=== PATIENT | female | born 1985 | race Caucasian/White ===

== ENCOUNTER → 2016-05-24 | Outpatient (CLI) | payer OTHER ==
[~2016-05-24] MED LIST: PRENTAB26 PO
== END | disposition home or self-care (01) ==
LOC: C.LAB1850 14:22
PROVIDERS: ATTEND Obstetrics & Gynecology
DX: Z32.01 Encounter for pregnancy test, result positive (principal)

== ENCOUNTER → 2016-05-26 | Outpatient (CLI) | payer OTHER ==
[2016-05-26 11:53] LABS: URINE APPEARANCE CLEAR (CLEAR); URINE BILIRUBIN NEG (NEG); URINE COLOR YELLOW; URINE NITRITE NEG (NEG); URINE SPECIFIC GRAVITY 1.002 (1.000-1.030); UROBILINOGEN NEG (NEG)
[2016-05-26 12:00] LABS: MANUAL MICROSCOPIC REQUIRED? NO; REVIEW REQ? NO
== END | disposition home or self-care (01) ==
LOC: C.LABSPEC 11:15
PROVIDERS: ATTEND Obstetrics & Gynecology
DX: Z34.00 Encounter for supervision of normal first pregnancy, unspecified trimester (principal)

== ENCOUNTER → 2016-06-02 | Outpatient (CLI) | payer OTHER ==
[2016-06-06 03:15] LABS: CHLAMYDIA TRACH RNA*** NOT DETECTED (NOT DETECTED); GC (NEIS GONORRHOEAE)RNA** NOT DETECTED (NOT DETECTED)
== END | disposition home or self-care (01) ==
LOC: C.LABSPEC 17:34
PROVIDERS: ATTEND Obstetrics & Gynecology
DX: Z34.00 Encounter for supervision of normal first pregnancy, unspecified trimester (principal)

== ENCOUNTER → 2016-06-02 | Outpatient (CLI) | payer OTHER ==
[2016-06-02 17:29] LABS: BASO % 0.1 %; BASO ABS # 0.01 K/uL (0-0.2); COMPLETE YES; EOS % 0.7 %; HEMATOCRIT 37.3 % (37-47); IG% 0.4 %; LYMPH % 24.9 %; LYMPH ABS # 2.37 K/uL (1.2-3.4); MEAN CELL VOLUME 90.3 fL (80-100); MEAN CORPUSCULAR HEMOGLOBIN 32.2 pg (25-34); MEAN CORPUSCULAR HGB CONC 35.7 g/dl (32-36); MONO % 6.4 %; NEUT % 67.5 %; PLATELET COUNT 182 K/uL (130-400); RED BLOOD COUNT 4.13 M/uL (4.2-5.4); WHITE BLOOD COUNT 9.51 K/uL (4.8-10.8)
== END | disposition home or self-care (01) ==
LOC: C.LAB1850 16:24
PROVIDERS: ATTEND Obstetrics & Gynecology
DX: Z34.00 Encounter for supervision of normal first pregnancy, unspecified trimester (principal)

== ENCOUNTER → 2016-08-02 | Outpatient (CLI) | payer OTHER ==
[2016-08-02 17:35] LABS: GTGD 50 Grams
== END | disposition home or self-care (01) ==
LOC: C.LAB1850 16:06
PROVIDERS: ATTEND Obstetrics & Gynecology
DX: Z34.01 Encounter for supervision of normal first pregnancy, first trimester (principal)

== ENCOUNTER → 2016-08-17 | Outpatient (CLI) | payer OTHER ==
[2016-08-21 16:27] LABS: AFP CONCENTRATION 50.9 NG/ML; AFPTS GESTATIONAL AGE 18.6 WEEKS; AFPTS INSULIN DEP DIABETIC? NO; AFPTS MATERNAL WT 129 LBS; ALPHA-FETOPROTEIN RACE CAUCASIAN=W; EDD DETERMINED BY ULTRASOUND; HISTORY OF NTD NO; REPEAT SAMPLE? NO
== END | disposition home or self-care (01) ==
LOC: C.LAB1850 07:02
PROVIDERS: ATTEND Obstetrics & Gynecology
DX: Z34.01 Encounter for supervision of normal first pregnancy, first trimester (principal); O28.9 Unspecified abnormal findings on antenatal screening of mother

== ENCOUNTER → 2016-10-21 | Outpatient (CLI) | payer OTHER ==
[2016-10-21 09:00] LABS: HEMATOCRIT 34.1 % (37-47)
[2016-10-21 09:47] LABS: URINE APPEARANCE CLEAR (CLEAR); URINE BILIRUBIN NEG (NEG); URINE COLOR YELLOW; URINE NITRITE NEG (NEG); URINE PH 7.5 (4.5-7.5); URINE SPECIFIC GRAVITY 1.003 (1.000-1.030); UROBILINOGEN NEG (NEG)
[2016-10-21 09:50] LABS: MANUAL MICROSCOPIC REQUIRED? NO; REVIEW REQ? NO
== END | disposition home or self-care (01) ==
LOC: C.LAB 07:09
PROVIDERS: ATTEND Obstetrics & Gynecology
DX: Z34.02 Encounter for supervision of normal first pregnancy, second trimester (principal)

== ENCOUNTER → 2016-10-28 | Outpatient (CLI) | payer OTHER | END | disposition home or self-care (01) | LOC: C.LAB 07:13 | PROVIDERS: ATTEND Obstetrics & Gynecology | DX: O28.9 Unspecified abnormal findings on antenatal screening of mother (principal); Z3A.00 Weeks of gestation of pregnancy not specified ==

== ENCOUNTER 2016-11-09 08:42 | Emergency (ER) | payer OTHER ==
[~2016-11-09] VITALS: Ht 170.2 cm; Wt 59.6 kg
[2016-11-09 08:46] VITALS: TEMP 36.6; Ht 170.2 cm; Wt 59.6 kg
[2016-11-09] MEDS ORDERED: PRENTAB26 PO (08:57)
[2016-11-09] MEDS ORDERED: SODIUM CHLORIDE 0.9% 1000ML 1,000 ML IV STA ×2 (10:00→13:01)
[2016-11-09 10:19] LABS: BASO % 0.2 %; BASO ABS # 0.02 K/uL (0-0.2); COMPLETE YES; EOS % 0.1 %; HEMATOCRIT 34.4 % (37-47); IG% 2.2 %; LYMPH % 9.6 %; LYMPH ABS # 1.12 K/uL (1.2-3.4); MEAN CELL VOLUME 93.5 fL (80-100); MEAN CORPUSCULAR HEMOGLOBIN 32.9 pg (25-34); MEAN CORPUSCULAR HGB CONC 35.2 g/dl (32-36); MEAN PLATELET VOLUME 8.7 fL (7.4-10.4); MONO % 4.4 %; NEUT % 83.5 %; PLATELET COUNT 206 K/uL (130-400); RED BLOOD COUNT 3.68 M/uL (4.2-5.4); WHITE BLOOD COUNT 11.68 K/uL (4.8-10.8)
[2016-11-09 10:26] LABS: POINT OF CARE TROPONIN I < 0.030 ng/ml (0-0.045)
[2016-11-09 10:46] LABS: ALT/SGPT 28 U/L (12-78); BLOOD UREA NITROGEN 10 mg/dl (7-18); BUN/CREATININE RATIO 16.2 (10-20); CALCIUM 9.1 mg/dl (8.5-10.1); CARBON DIOXIDE 24 mmol/L (21-32); CHLORIDE 105 mmol/L (98-107); CREATININE 0.61 mg/dl (0.60-1.20); GLUCOSE 77 mg/dl (70-99); POTASSIUM 3.4 mmol/L (3.5-5.1); SODIUM 138 mmol/L (136-145)
[2016-11-09 10:49] LABS: ALKALINE PHOSPHATASE 113 U/L (45-117); AST/SGOT 34 U/L (15-37)
--- NOTE | 2016-11-09 10:59 | DIAGNOSTIC IMAGING REPORT ---
BILATERAL LOWER EXTREMITY VENOUS DOPPLER CLINICAL HISTORY: Chest pain. Evaluate for deep venous thrombus. COMPARISON STUDY: No previous studies for comparison. TECHNIQUE: Sonography of the deep venous system of the bilateral lower extremities was performed. Compression and augmentation were evaluated. FINDINGS: The bilateral common femoral, superficial femoral and popliteal veins were compressible. Augmentation was normal. Flow was shown within the deep calf vessels. IMPRESSION: No evidence of deep venous thrombus within the bilateral lower extremities. Electronically signed by: Ahmet Kirkpatrick M.D. 11/09/2016 10:58 AM Dictated Date/Time: 11/09/2016 10:57 AM
--- NOTE | 2016-11-09 11:55 | DIAGNOSTIC IMAGING REPORT ---
CHEST ONE VIEW PORTABLE CLINICAL HISTORY: Chest pain. COMPARISON STUDY: No previous studies for comparison. FINDINGS: Lung volumes are normal. There are suspected bilateral breast implants. No consolidation is identified and there is no evidence of pulmonary edema. No pneumothorax or pleural effusion is identified. Cardiomediastinal silhouette is normal. IMPRESSION: No acute cardiopulmonary findings. Electronically signed by: Ahmet Kirkpatrick M.D. 11/09/2016 11:54 AM Dictated Date/Time: 11/09/2016 11:53 AM
[2016-11-09] MEDS ORDERED: OPTIRAY 320 IV PRN (13:15)
--- NOTE | 2016-11-09 13:46 | DIAGNOSTIC IMAGING REPORT ---
CT ANGIOGRAM OF THE CHEST CLINICAL HISTORY: Atypical chest pain, shortness of breath, tachycardia, elevated d-dimer. COMPARISON STUDY: Chest x-ray dated 11/09/2016 TECHNIQUE: Following the IV administration of 83 mL of Optiray-320, CT angiogram of the thorax was performed from the thoracic inlet to the lung bases utilizing the pulmonary embolus protocol. Images are reviewed in the axial, sagittal, and coronal planes. IV contrast was administered without complication. MIP imaging was performed. A dose lowering technique was utilized adhering to the principles of ALARA. CT DOSE: 168.44 mGy.cm FINDINGS: No pathologically enlarged axillary mediastinal or hilar lymph nodes were visualized. There was no evidence of thoracic aortic dilatation. There were no pulmonary artery filling defects to indicate acute pulmonary embolism. No pleural effusions are visualized. There was no evidence of focal pulmonary consolidation. There are bilateral breast prostheses. IMPRESSION: 1. No evidence of acute pulmonary embolism 2. No evidence of focal pulmonary consolidation Electronically signed by: Parveen Epstein M.D. 11/09/2016 1:45 PM Dictated Date/Time: 11/09/2016 1:42 PM
[2016-11-09 15:15] VITALS: BP 121/78; PULSE 78; O2SAT 100
--- NOTE | 2016-11-10 06:37 | EMERGENCY ROOM VISIT NOTE ---
ED Visit Note First contact with patient: 09:14 Chief Complaint: My chest feels heavy. History of Present Illness: is a 31-year-old white female who ambulates into the ED complaining of chest discomfort, shortness of breath and tachycardia. 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 She reports this is been minimally evaluated no cause has been identified. Additionally she currently reports that she is with her first child at 30 weeks gestation. Patient reports her symptoms started 30 days ago. She reports after coming to work she started having sensations of chest heaviness, shortness of breath and when she checked her heart rate it was in the 130s. This waxed and waned and she was sent home from work. On Sunday when she woke up from sleep she was having the same symptoms and stayed home from work. She returned to work yesterday and minimally had her symptoms but they were not as severe. Today at work her pain became more severe and has been constant and not relieved with rest. Currently she is complaining of a chest heaviness sensation throughout the entire chest with slight prominence just left lateral to the sternal border. Currently she rates her discomfort 3/10 but does report it was higher earlier today. Her pain is nonradiating. She has not identified any aggravating factors related to the pain. She has not taken any medications for pain prior to arrival at the hospital. Associated with her pain she reports she feels short of breath and this morning she checked her heart rate and it was 130. Additionally she does report she had cramping in her left calf muscle couple nights ago and felt like it was severe. Patient denies fevers, chills, sweats, skin eruptions, skin color changes, upper respiratory tract symptoms, wheezing, cough, orthopnea, dependent edema, previous clots, claudication, recent surgery/inactivity/extended travel, abdominal pain, nausea, vomiting, diarrhea, constipation, rectal bleeding, black /tarry stools, urinary symptoms, back/flank pain. Review of Systems: As noted above in history of present illness. All body systems were reviewed and found to be negative as noted above. Past Medical History: As previously noted, gestational diabetes, status post rest augmentation, tonsillectomy, adenoidectomy. Current Medications: Medications Dose Route/Sig Max Daily Dose Days Date Category Vitamin (Prenat Multivit/Centre/Iron/Folic Ac) Tab 1 Tab PO DAILY 11/09/16 Reported Allergies to Medications: Minocycline. Social History: Patient is currently employed; she feels safe in her home environment; she denies tobacco and alcohol use. Physical Examination: Vital Signs: Date Time Temp Pulse Resp B/P (MAP) Pulse Ox O2 Delivery O2 Flow Rate FiO2 11/09/16 15:15 78 18 121/78 100 11/09/16 13:46 94 16 118/72 11/09/16 13:17 77 11/09/16 12:28 84 16 114/69 100 11/09/16 10:16 83 16 113/71 11/09/16 09:05 76 11/09/16 08:46 36.6 104 18 124/87 100 Room Air GENERAL: 31-year-old female in mild distress due to symptoms, nontoxic-appearing , afebrile and hemodynamically stable. She is slightly anxious. NEUROLOGICAL: Awake, alert and oriented to person, place and time. Answering questions appropriately and following commands. Normal gait. Good hand eye coordination. SKIN: Warm, dry and pink. No soft tissue eruptions or trauma noted. HEENT: Atraumatic and normocephalic. PERRLA. Sclera white and conjunctiva pink. Airway patent. Pharynx is nonerythematous or edematous. Speech normal. No lymphadenopathy. Trachea midline. No jugular venous distention. No carotid bruits. BACK: No tenderness over the bony spine. No CVA tenderness. THORAX: Lungs sounds are clear to auscultation and equal bilaterally with symmetrical chest wall. No wheezing, rales or rhonchi. Mild tenderness in the left side of the chest just lateral to the spine. No bony crepitus, subcutaneous air or deformities noted. HEART: Regular rate and rhythm. No gallops, rubs or murmurs are appreciated. No lifts, heaves or thrills. PMI is not displaced. ABDOMEN: and firm and nontender. Positive bowel sounds in all quadrants. No guarding, rigidity or organomegaly. EXTREMITIES: Moves all extremities well on command and with purpose. All distal neurovascular statuses are intact and equal bilaterally. Mild bilateral dependent edema. No calf tenderness or cords. ED Course: Patient is assessed as noted above. Patient's medication list was reviewed. Laboratory Testing: Test 11/09/16 10:00 11/09/16 10:07 Range/Units White Blood Count 11.68 4.8-10.8 K/uL Red Blood Count 3.68 4.2-5.4 M/uL Hemoglobin 12.1 12.0-16.0 g/dL Hematocrit 34.4 37-47 % Mean Corpuscular Volume 93.5 80-100 fL Mean Corpuscular Hemoglobin 32.9 25-34 pg Mean Corpuscular Hemoglobin Concent 35.2 32-36 g/dl Platelet Count 206 130-400 K/uL Mean Platelet Volume 8.7 7.4-10.4 fL Neutrophils (%) (Auto) 83.5 % Lymphocytes (%) (Auto) 9.6 % Monocytes (%) (Auto) 4.4 % Eosinophils (%) (Auto) 0.1 % Basophils (%) (Auto) 0.2 % Neutrophils # (Auto) 9.76 1.4-6.5 K/uL Lymphocytes # (Auto) 1.12 1.2-3.4 K/uL Monocytes # (Auto) 0.51 0.11-0.59 K/uL Eosinophils # (Auto) 0.01 0-0.5 K/uL Basophils # (Auto) 0.02 0-0.2 K/uL RDW Standard Deviation 43.6 36.4-46.3 fL RDW Coefficient of Variation 12.9 11.5-14.5 % Immature Granulocyte % (Auto) 2.2 % Immature Granulocyte # (Auto) 0.26 0.00-0.02 K/uL Sodium Level 138 136-145 mmol/L Potassium Level 3.4 3.5-5.1 mmol/L Chloride Level 105 98-107 mmol/L Carbon Dioxide Level 24 21-32 mmol/L Anion Gap 9.0 3-11 mmol/L Blood Urea Nitrogen 10 7-18 mg/dl Creatinine 0.61 0.60-1.20 mg/dl Est Creatinine Clear Calc Drug Dose 124.6 ml/min Estimated GFR () 139.0 Estimated GFR (Non- 120.0 BUN/Creatinine Ratio 16.2 10-20 Random Glucose 77 70-99 mg/dl Calcium Level 9.1 8.5-10.1 mg/dl Total Bilirubin 0.2 0.2-1 mg/dl Direct Bilirubin < 0.1 0-0.2 mg/dl Aspartate Amino Transf (AST/SGOT) 34 15-37 U/L Alanine Aminotransferase (ALT/SGPT) 28 12-78 U/L Alkaline Phosphatase 113 45-117 U/L Total Protein 6.8 6.4-8.2 gm/dl Albumin 2.9 3.4-5.0 gm/dl Lipase 145 73-393 U/L Bedside D-Dimer > 450 0-450 ng/mlFEU Bedside Troponin I < 0.030 0-0.045 ng/ml Chest X-Rays: Were read by myself and the radiologist showing no acute infiltrates, effusions or pneumothorax. Normal heart silhouette and bony anatomy. Bilateral Venous Doppler Ultrasounds: Were reviewed by myself and read by the radiologist showing no evidence of deep vein thrombus of the lower extremities. CTA Chest: Was reviewed by myself and read by the radiologist showing no evidence of acute pulmonary embolism or focal pulmonary consolidation. EKG: Was read by myself and reviewed with Dr. Roman; shows normal sinus rhythm with a ventricular rate of [address] changes but no signs of acute ischemia, injury or infarction. No arrhythmias. Normal-appearing complexes. No previous to compare. Patient was hydrated with normal saline DC: She was offered pain medication and refused. Patient was reassessed multiple times during her stay in the emergency department. Patient's case was reviewed with Dr. Roman; we agreed on diagnostic approach, treatment, disposition and plan. Patient's case was consulted with Dr. Garza, RECORDS SECTION SUPERVISOR; she agreed that a chest CTA was required to rule out pulmonary embolism. Patient was educated about today's findings and instructed on her treatment plan ; she verbalized understanding and agreement with this plan. Clinical Impression: Acute chest pain. Decision-Making: Initially my differential diagnosis I considered pulmonary embolism, acute coronary syndrome, thoracic aneurysm, pneumothorax, pneumonia, pericarditis and other causes. Disposition: Patient discharged home in stable condition accompanied by her ; prior to departure she was reassessed and subjectively reported she was pain and symptom-free. Plan: Patient was encouraged to continue her current medication. Patient was encouraged to consider using 650 mg of acetaminophen every 6 hours as needed for pain. Patient was encouraged to avoid stimulants use and stay well hydrated. Patient was encouraged to rest when she has any symptoms. Patient is encouraged to follow-up with her family physician or will be practitioner for rechecks. Patient is encouraged return ED for worsening symptoms, coughing up blood, syncope or any new/concerning symptoms.
== END 2016-11-09 15:16 | disposition home or self-care (01) ==
LOC: C.EDB 08:44 → C.EDA 15:16
DX: R07.9 Chest pain, unspecified (principal); Z98.890 Other specified postprocedural states; Z88.8 Allergy status to other drugs, medicaments and biological substances

== ENCOUNTER → 2016-11-10 | Outpatient (CLI) | payer OTHER ==
[2016-11-10 18:02] LABS: INFLUENZA A PCR Neg for Influ A (NEG); INFLUENZA B PCR Neg for Influ B (NEG)
== END | disposition home or self-care (01) ==
LOC: C.LAB 15:59
PROVIDERS: ATTEND Physician Assistant Medical
DX: Z00.00 Encounter for general adult medical examination without abnormal findings (principal)

== ENCOUNTER → 2016-11-11 | Outpatient (CLI) | payer OTHER ==
[2016-11-11 13:40] LABS: URINE APPEARANCE CLEAR (CLEAR); URINE BILIRUBIN NEG (NEG); URINE COLOR YELLOW; URINE NITRITE NEG (NEG); URINE PH 6.5 (4.5-7.5); URINE SPECIFIC GRAVITY 1.004 (1.000-1.030); UROBILINOGEN NEG (NEG)
[2016-11-11 13:42] LABS: MANUAL MICROSCOPIC REQUIRED? NO; REVIEW REQ? NO
== END | disposition home or self-care (01) ==
LOC: C.LAB 12:39
PROVIDERS: ATTEND Internal Medicine
DX: R50.9 Fever, unspecified (principal)

== ENCOUNTER → 2016-12-19 | Outpatient (CLI) | payer OTHER | END | disposition home or self-care (01) | LOC: C.LABSPEC 17:52 | PROVIDERS: ATTEND Obstetrics & Gynecology | DX: Z34.03 Encounter for supervision of normal first pregnancy, third trimester (principal) ==

== ENCOUNTER 2017-01-08 23:42 | Inpatient (IN) | payer OTHER ==
[~2017-01-08] VITALS: Ht 170.2 cm; Wt 59.5 kg
[2017-01-09 00:29] VITALS: Ht 170.2 cm; Wt 59.5 kg
[2017-01-09] MEDS ORDERED: LACTATED RINGER'S 1000ML 1,000 ML IV PRN (00:57)
[2017-01-09] MEDS ORDERED: LACTATED RINGER'S 1000ML 1,000 ML IV SCH (00:57)
[2017-01-09] MEDS ORDERED: FENTANYL 2MCG/ML ROPIV 1.25MG/ML 100ML BAG EPI ONE (00:57)
[2017-01-09] MEDS ORDERED: EpHEDrine SULFATE INJ 50 MG/ML AMP ONE (00:57)
[2017-01-09] MEDS ORDERED: BUPIVACAINE 0.25% 30 ML VIAL ONE (00:57)
[2017-01-09] MEDS ORDERED: FENTANYL CITRATE INJ 50 MCG/1 ML 2 ML VIAL ONE (00:57)
[2017-01-09 01:20] LABS: HEMATOCRIT 39.7 % (37-47); MEAN CELL VOLUME 94.7 fL (80-100); MEAN CORPUSCULAR HEMOGLOBIN 33.4 pg (25-34); MEAN CORPUSCULAR HGB CONC 35.3 g/dl (32-36); MEAN PLATELET VOLUME 9.8 fL (7.4-10.4); PLATELET COUNT 236 K/uL (130-400); RED BLOOD COUNT 4.19 M/uL (4.2-5.4); WHITE BLOOD COUNT 18.56 K/uL (4.8-10.8)
[2017-01-09] MEDS ORDERED: NALOXONE HCL INJ 1 MG in SODIUM CHLORIDE 0.9% 1000ML 1,000 ML IV PRN (02:17)
[2017-01-09] MEDS ORDERED: LACTATED RINGER'S 1000ML 500 ML IV PRN (02:17)
[2017-01-09] MEDS ORDERED: NALOXONE HCL INJ 0.4 MG/1 ML VIAL/CARP IV PRN (02:30)
[2017-01-09] MEDS ORDERED: NALBUPHINE HCL INJ 10 MG/ML AMP IV PRN (02:30)
[2017-01-09] MEDS ORDERED: ONDANSETRON INJ 2 MG/ML 2 ML VIAL IV PRN (02:30)
[2017-01-09] MEDS ORDERED: FENTANYL 2MCG/ML ROPIV 1.25MG/ML 100ML BAG EPI PRN (02:30)
[2017-01-09] MEDS ORDERED: EpHEDrine SULFATE INJ 50 MG/ML AMP IV PRN (02:30)
[2017-01-09] MEDS ORDERED: DiphenhydrAMINE HCL 50 MG/ML VIAL IV PRN (02:30)
[2017-01-09] MEDS ORDERED: OXYTOCIN 30 UNITS/500ML NSS IV ONE (05:39)
[2017-01-09] MEDS ORDERED: OXYTOCIN INJ 20 UNITS in LACTATED RINGER'S 1000ML 1,000 ML IV SCH (06:24)
--- NOTE | 2017-01-09 06:28 | Vaginal Delivery Summary ---
Vaginal Delivery Summary The patient dilated to complete and pushed to deliver a viable female infant Apgars 9 and 9, via over second-degree perineal laceration. Mouth and nose bulb suctioned at the perineum. Shoulders and body delivered with ease. Infant vigorous and crying at . Cord clamped at 30 seconds of life. to maternal abdomen and cord doubly clamped and cut. Placenta delivered spontaneously and intact 3 vessel cord. Hemostasis achieved with dilute Pitocin and uterine massage. Bladder drained under sterile conditions for 200 cc's. Cervix and sulci intact. Bilateral labial laceration as well as second-degree perineal laceration repaired in usual fashion using 3-0 Vicryl. EBL 300 cc's. Mother and baby stable in recovery.
[2017-01-09] MEDS ORDERED: DIPHTHERIA/TETANUS/PERTUSSIS 0.5 ML SYR/VIAL IM. ONE (06:30)
[2017-01-09] MEDS ORDERED: ACETAMINOPHEN/CODEINE 300/30MG TAB PO PRN ×2 (06:30)
[2017-01-09] MEDS ORDERED: SUPERCREAM 0.870 % 15GM JAR EXT PRN (06:30)
[2017-01-09] MEDS ORDERED: BENZOCAINE 20% AER SPR 82.5 GM CAN EXT PRN (06:30)
[2017-01-09] MEDS ORDERED: OXYTOCIN 30 UNITS/500ML NSS IV PRN (06:30)
[2017-01-09] MEDS ORDERED: LANOLIN OINT EXT PRN ×2 (06:30)
[2017-01-09] MEDS ORDERED: ACETAMINOPHEN 325 MG TAB PO PRN (06:30)
[2017-01-09] MEDS ORDERED: HYDROCORTISONE ACETATE 25 MG SUPP PR PRN (06:30)
--- NOTE | 2017-01-09 08:29 | Anesthesia Procedure Note ---
Anesthesia Epidural Removal Nt Date & Time Jan 09, 2017 at 08:28 Vital Signs Pain Intensity: 0.0 Notes Mental Status: alert / awake / arousable, participated in evaluation Nausea / Vomiting: adequately controlled Pain: adequately controlled Airway Patency, RR, SpO2: stable & adequate BP & HR: stable & adequate Hydration State: stable & adequate Neuraxial Anesthesia: was administered Anesthetic Complications: no major complications apparent, pt satisfied with anesthetic care Epidural: removed without complications, with tip intact
[2017-01-09] MEDS: IBUPROFEN 600 MG TAB PO PRN ×4 (10:09→22:06)
[2017-01-09] MEDS: DOCUSATE SODIUM 100 MG CAP PO SCH ×2 (11:18→20:15)
[2017-01-09 12:30] VITALS: BP 132/82; PULSE 61; TEMP 36.9; O2SAT 100
[2017-01-09 13:02] VITALS: O2SAT 100
[2017-01-09 16:00] VITALS: BP 125/79; PULSE 58; TEMP 36.9; O2SAT 98
[2017-01-09 20:20] VITALS: BP 131/80; PULSE 55; TEMP 36.7; O2SAT 100
[2017-01-09 23:50] VITALS: BP 129/83; PULSE 55; TEMP 36.6; O2SAT 99
[2017-01-10 04:40] VITALS: BP 121/79; PULSE 62; TEMP 36.6; O2SAT 100
[2017-01-10] MEDS: IBUPROFEN 600 MG TAB PO PRN ×2 (06:22→10:57)
--- NOTE | 2017-01-10 07:42 | Progress Note ---
Subjective Jan 10, 2017. Subjective conversation w/ patient, physical exam, chart review Ambulation: ambulating normally Voiding: no voiding problems Diet Tolerance: Regular Diet Lochia: Small Feeding Type: Breast Feeding Objective Vital Signs Date Time Temp Pulse Resp B/P (MAP) Pulse Ox O2 Delivery O2 Flow Rate FiO2 01/10/17 04:40 36.6 62 16 121/79 (93) 100 Room Air 01/09/17 23:50 Room Air 01/09/17 23:50 36.6 55 16 129/83 (98) 99 Room Air 01/09/17 20:20 36.7 55 16 131/80 (97) 100 Room Air 01/09/17 20:20 Room Air 01/09/17 16:00 36.9 58 16 125/79 (94) 98 Room Air 01/09/17 16:00 98 Room Air 01/09/17 13:02 100 Room Air 01/09/17 12:30 36.9 61 18 132/82 (99) 100 Room Air Physical Exam General Appearance: WELL-APPEARING Abdomen: non tender Extremities: no calf tenderness Assessment and Plan Problem List Medical Problems: (1) Chest pain Status: Acute Post- Day#: 2 Continue Routine Care: home
--- NOTE | 2017-01-10 07:43 | Discharge Instructions ---
Discharge Instructions Date of Service Jan 10, 2017. Admission Reason for Admission: Check Labor Discharge Discharge Diagnosis / Problem: Discharge Goals Goal(s): Routine recovery after delivery Activity Recommendations Activity Limitations: per Instructions/Follow-up section . Instructions / Follow-Up Instructions / Follow-Up ACTIVITY RECOMMENDATIONS: * Gradual return to full activity over the next 2-3 weeks. * No lifting - nothing heavier than baby over the next 2-3 weeks. * Do not engage in vigorous exercise, sexual activity or sports until cleared by your physician. * Do not drive or operate any motorized equipment until cleared by your physician. * You may shower/bathe daily. MEDICATIONS: For discomfort or pain, you may use Acetaminophen (Tylenol), Ibuprofen (Advil), or Naproxen (Aleve) following the package directions. For constipation you may use Colace following the package directions. BREAST CARE: If you are not breast feeding: * Wear a supportive bra 24 hours a day for one to two weeks. * Avoid stimulating your breasts and nipples as much as possible during the first few weeks after delivery. * When taking a shower, have the warm water hit your back, not breasts. * When your breasts feel full, apply ice packs. Usually three to four times a day helps ease the discomfort. * Take a mild pain medication (Tylenol / Motrin) when you are uncomfortable. If breast feeding: * Use breast milk to lubricate nipples. Lansinoh cream may be used for sore nipples. You do not need to remove cream prior to breast feeding. If using a different brand of cream, check the label for directions regarding removal of cream prior to nursing. * Wear a supportive bra. * If having problems with breasts or breast feeding, call a jewelry consultant or your health care provider. EPISIOTOMY CARE: After delivery, if you have an episiotomy (stitches), the following steps will ease discomfort and aid healing. * For the first 24 hours after delivery, place ice packs next to your episiotomy to help reduce swelling. * After the first 24 hour-period, sitz baths, either portable or in the tub, are suggested. A shower with a shower arm sprayed over the episiotomy may be comforting. * Marisa care should be done after each voiding and bowel movement. Squirt warm water from a plastic bottle over the perineum (region of the body between the anus and urinary opening) and pat dry. * Use Dermoplast to ease discomfort. Shake container. [place]met[place] directly over the episiotomy. Place a Tucks on a clean sanitary pad next to your episiotomy. SPECIAL CARE INSTRUCTIONS: When you are discharged from the hospital, it is important for you to follow the instructions listed below: * During the first week at home, you should be able to care for yourself and your baby. In addition, the usual light household activities are encouraged. * Limit your activities to the way you feel. Do not try to clean the house or move furniture. Be sensible. * If you actively engage in sports and have done so up until the time of your delivery, you may resume these activities as soon as you feel able. This may take up to one month or even longer. Use good judgment. * Continue to take your vitamins for at least six weeks after the of your baby. * Your diet need not be limited unless you were on a special diet before your delivery. Breast-feeding mothers need around 2500 calories per day and at least 64-80 ounces of fluid per day (8 to 10 glasses). * You should eat foods from the four major food groups. Crash diets or fad diets are to be avoided. Eating lean meats, fresh fruits and vegetables, low-fat dairy products, high fiber foods and a regular exercise program, will help you get back to your pre- weight without putting your health at risk. * Constipation is sometimes a problem after delivery. Take a mild laxative as needed. If breast feeding, Milk of Magnesia is acceptable to use. You may use a suppository or Fleets enema if no episiotomy. * A daily shower or tub bath is suggested. Be sure to thoroughly and gently dry the perineum. * A bloody vaginal discharge will usually continue until around four weeks post . A small amount of bleeding may continue for as long as six weeks. Vaginal discharge changes from the bright red bleeding after delivery to pink then brownish and finally yellowish-pink before becoming white and disappearing. * Bleeding may increase with activity. Your first period may come in 4-8 weeks. If you are breast feeding, your period may be delayed even longer. * [place] (sex) can begin whenever both you and your partner feel comfortable and do not have any form of genital infection. It is recommended that you wait at least six weeks for internal and external healing to occur. If you have questions, please talk to your health care practitioner. A condom should be used to prevent infection and . * Foreplay, gentle intercourse and lubrication is very important the first several times to prevent pain. A water-based lubricant such as K-Y jelly or Astroglide may be used. * If you have RH negative blood and your baby is RH positive, you will receive RHOGAM by injection prior to discharge. The nurse will give you a card to keep with you that has the date and place that you received RHOGAM after delivery. * During your care, you had a Rubella screen done to check for the presence of rubella antibodies in your blood. If your test was negative, you will receive a Rubella vaccine prior to discharge. This vaccine may cause a fever, soreness at the injection site and flu-like symptoms. If these symptoms persist, notify your health care practitioner. is not advised for one month after a Rubella vaccine. * Verbalizes understanding of car seat law as reviewed with patient nursing. * Car Seat hand-out given and reviewed with patient by nursing. * Shaken baby information reviewed with patient by nursing. Call you doctor if: * Heavy bleeding (saturating several pads an hour) or passing clots the size of your fist. * A fever >101 degrees F (38.3 degrees C) on two occasions four hours apart and /or chills. * Unusual pain in the pelvic or vaginal areas. * "Baby Blues" lasting longer than two weeks. If you have any questions or concerns, call your health care practitioner at . FOLLOW UP VISIT: * Please call the office at to schedule a 6 week examination. It is important you keep this appointment. It is important for you to make arrangements for either yearly or twice yearly check-ups thereafter. Current Hospital Diet Patient's current hospital diet: Regular OB Diet Discharge Diet Recommended Diet: Regular OB Diet Pending Studies Studies pending at discharge: no Medical Emergencies . Who to Call and When: Medical Emergencies: If at any time you feel your situation is an emergency, please call 911 immediately. . Non-Emergent Contact Non-Emergency issues call your: Volunteer Recruitment Coordinator . . "Provider Documentation" section prepared by Alex Masters. . VTE Core Measure Inpt VTE Proph given/why not?: Treatment not indicated
[2017-01-10] MEDS: DOCUSATE SODIUM 100 MG CAP PO SCH (08:00)
== END 2017-01-10 14:14 | disposition home or self-care (01) | DRG 775 ==
LOC: C.OPB 23:42 → C.LD 23:42 → C.OPB 01-09 00:58 → C.LD 01-09 00:58 → C.OBG 01-09 12:10
PROVIDERS: ADMIT Obstetrics & Gynecology; ATTEND Obstetrics & Gynecology
PROC: 0KQM0ZZ Repair Perineum Muscle, Open Approach (ICD-10-PCS; principal; 2017-01-09)
PROC: 10E0XZZ Delivery of Products of Conception, External Approach (ICD-10-PCS; principal; 2017-01-09)
DX: O70.1 Second degree perineal laceration during delivery (principal); Z37.0 Single live birth; Z3A.39 39 weeks gestation of pregnancy

== ENCOUNTER → 2017-02-16 | Outpatient (CLI) | payer OTHER | END | disposition home or self-care (01) | LOC: C.PAPS 17:41 | PROVIDERS: ATTEND Obstetrics & Gynecology | DX: Z12.4 Encounter for screening for malignant neoplasm of cervix (principal) ==

== ENCOUNTER → 2017-04-17 | Outpatient (CLI) | payer OTHER | END | disposition home or self-care (01) | LOC: C.PATHSPEC 13:49 | PROVIDERS: ATTEND Obstetrics & Gynecology | DX: N87.0 Mild cervical dysplasia (principal); B97.7 Papillomavirus as the cause of diseases classified elsewhere ==

== ENCOUNTER 2017-06-26 16:18 | Emergency (ER) | payer OTHER ==
[~2017-06-26] VITALS: Ht 170.2 cm; Wt 53.4 kg
[2017-06-26 16:21] VITALS: TEMP 36.8; Ht 170.2 cm; Wt 53.4 kg
[2017-06-26] MEDS ORDERED: MULT-240 PO (16:57)
[2017-06-26] MEDS ORDERED: RABIES VACCINE (IMOVAX) HUMAN DIPL CELL 2.5 INTER.UNIT/ML SYR IM. ONE (17:00)
[2017-06-26] MEDS ORDERED: RABIES IMMUNE GLOBULIN (HUMAN) 150 INTER.UNIT/ML 2 ML VIAL IM. ONE (17:00)
[2017-06-26 18:40] VITALS: BP 122/85; PULSE 76; O2SAT 100
--- NOTE | 2017-06-27 00:14 | EMERGENCY ROOM VISIT NOTE ---
ED Visit Note First contact with patient: 16:22 Chief Complaint: Rabies prophylaxis. History of Present Illness: Ms. Varner is a 32-year-old white female who ambulates into the ED accompanied by her and daughter reporting that when she awoke this morning he noted a bat flying around his house. She reports she contacted the family physician who recommended that the patient come to the emergency department for rabies prophylaxis. Patient reports that she checked over her body and was not able to identify any bites from the back. She reports he is feeling well and is asymptomatic at this time. Review of Systems: As noted above in history of present illness. Past Medical History: Gestational diabetes, status post breast augmentation and tonsillectomy and adenoidectomy. Current Medications: Multivitamins. Allergies to Medications: Patient denies. Social History: Patient is currently employed; he feels safe in her home environment; she denies tobacco use. Tetanus Immunization Status: Patient reports up-to-date. Physical Examination: Vital Signs: Date Time Temp Pulse Resp B/P (MAP) Pulse Ox O2 Delivery O2 Flow Rate FiO2 06/26/17 18:40 76 18 122/85 100 06/26/17 16:21 36.8 84 16 126/76 99 Room Air GENERAL: 32-year-old male in no acute distress, nontoxic-appearing, afebrile and hemodynamically stable. NEUROLOGICAL: Awake, alert and oriented to person, place and time. Answering questions appropriately and following commands. Normal gait. ED Course: Patient is assessed as noted above. Patient's medication list were reviewed. Patient received a total of 1068 units of rabies immunoglobulin IM and 2.5 units of rabies vaccination IM. Patient was observed and had no reactions to her medications. Patient was educated about today's findings and instructed on her treatment plan ; she verbalized understanding and agreement with this plan. Clinical Impression: In need of rabies prophylaxis. Disposition: Patient discharged home in stable condition accompanied by her and daughter; prior to departure he was reassessed and was asymptomatic. Plan: Patient was encouraged return to the ED on June 29, July 08 and July 10 for additional rabies vaccinations. Patient was educated on common side effects of rabies vaccination and treatment. Patient was encouraged to follow-up with family doctor as needed for mild reactions from his injections. Patient was encouraged return to the ED for any signs of allergic reactions, fevers, uncontrolled pain or any new/concerning symptoms.
== END 2017-06-26 18:20 | disposition home or self-care (01) ==
LOC: C.EDB 16:20 → C.EDD 18:20
DX: Z20.3 Contact with and (suspected) exposure to rabies (principal); Z23 Encounter for immunization

== ENCOUNTER 2017-07-03 15:46 | Emergency (ER) | payer OTHER ==
[~2017-07-03] VITALS: Ht 170.2 cm; Wt 54.2 kg
[~2017-07-03 15:46] MED LIST changes: +MULT-240 PO; -PRENTAB26 PO
[2017-07-03 15:59] VITALS: BP 111/78; TEMP 36.6; Ht 170.2 cm; Wt 54.2 kg
[2017-07-03] MEDS ORDERED: RABIES VACCINE (IMOVAX) HUMAN DIPL CELL 2.5 INTER.UNIT/ML SYR IM. ONE (16:15)
--- NOTE | 2017-07-03 16:18 | EMERGENCY ROOM VISIT NOTE ---
ED Visit Note First contact with patient: 16:02 CHIEF COMPLAINT: Rabies prophylaxis HISTORY OF PRESENT ILLNESS: This 32-year-old female patient presents to the emergency department, ambulatory, for their third rabies shot. The patient has not had any complications from the previous injections. They deny any other complaints. REVIEW OF SYSTEMS: A 6 system review of systems was completed with positives and pertinent negatives listed in the HPI. ALLERGIES: Gluten MEDICATIONS: Multivitamin PMH: None PHYSICAL EXAM: Vital Signs: Reviewed Nurse's notes, vital signs stable. GENERAL : This is a 32-year-old female, in no acute distress, well-developed, well- nourished. HEAD: Atraumatic, without temporal or scalp tenderness. EYES: PERRLA, EOMI, no discharge or injection. SKIN: Normal. NEUROLOGICAL: Alert and cooperative. Sensory and motor functions grossly intact. EMERGENCY DEPARTMENT COURSE: I examined the patient. The patient was given Imovax 1ml IM. The patient was observed for 20 minutes with no reaction. The patient was discharged home in stable condition. I attest that I have personally reviewed the patient's current medication list. Patient was found to have normal blood pressure on screening and does not require follow-up. Differential diagnosis includes rabies, rabies prophylaxis, infection, adverse reaction, and others DIAGNOSIS: Rabies prophylaxis The chart was completed utilizing [employer] Speech voice recognition software. Grammatical errors, random word insertions, pronoun errors, and incomplete sentences are an occasional consequence of this system due to software limitations, ambient noise, and hardware issues. Any formal questions or concerns about the content, text, or information contained within the body of this dictation should be directly addressed to the provider for clarification. Problem List Medical Problems: (1) Chest pain Status: Resolved Current/Historical Medications Scheduled Multiple Vitamins W/ Minerals (Womens One Daily), 1 TAB PO DAILY Allergies Coded Allergies: Minocycline (Verified Allergy, Severe, ANAPHYLAXIS, 01/09/17) swelling Vital Signs Date Time Temp Pulse Resp B/P (MAP) Pulse Ox O2 Delivery O2 Flow Rate FiO2 07/03/17 16:51 65 100 07/03/17 15:59 36.6 61 18 111/78 100 Room Air Medications Administered Medications (Trade) Dose Ordered Sig/Danni Route Start Time Stop Time Status Last Admin Dose Admin Rabies Vaccine Human Diploid Cell (Imovax Rabies) 2.5 interunit ONCE ONCE IM. 07/03/17 16:15 4/24/18 16:16 DC 07/03/17 16:25 2.5 INTERUNIT Departure Information Impression Primary Impression: Need for prophylactic vaccination against rabies Dispostion Home / Self-Care Condition GOOD Referrals No Doctor, Assigned (PCP) Patient Instructions My [facility] Additional Instructions You were seen in the ED today for your 3rd rabies vaccination. Please return on day 14 for your final vaccine. Return sooner for any concerning symptoms or adverse reactions.
[2017-07-03 16:51] VITALS: PULSE 65; O2SAT 100
== END 2017-07-03 16:52 | disposition home or self-care (01) ==
LOC: C.EDB 15:47 → C.EDD 16:52
DX: Z20.3 Contact with and (suspected) exposure to rabies (principal); Z23 Encounter for immunization

== ENCOUNTER 2017-07-10 09:34 | Emergency (ER) | payer OTHER ==
[~2017-07-10] VITALS: Ht 170.2 cm; Wt 53.4 kg
[2017-07-10 09:39] VITALS: TEMP 36.7; Ht 170.2 cm; Wt 53.4 kg
--- NOTE | 2017-07-10 09:54 | EMERGENCY ROOM VISIT NOTE ---
ED Visit Note First contact with patient: 09:43 CHIEF COMPLAINT: "rabies vaccine repeat visit". HISTORY OF PRESENT ILLNESS: This 32-year-old female patient presents to the emergency department via private for their fourth and final rabies shot. The patient has not had any complications from the previous injections. They deny any other complaints. REVIEW OF SYSTEMS: A 6 system review of systems was completed with positives and pertinent negatives listed in the HPI. ALLERGIES: Minocycline MEDICATIONS: As noted below PMH: Unchanged from previous visit. PHYSICAL EXAM: Vital Signs: Reviewed Nurse's notes, vital signs stable. GENERAL : 32-year-old female, in no acute distress, well-developed, well-nourished. HEAD: Atraumatic. EYES: PERRLA, EOMI, no discharge or injection. SKIN: Normal. NEUROLOGICAL: Alert and cooperative. Sensory and motor functions grossly intact. EMERGENCY DEPARTMENT COURSE: I examined the patient. The patient was given 2.5 interunit, 1ml IM of Imovax. The patient was observed for 20 minutes with no reaction. The patient was discharged home in stable condition. Problem List Medical Problems: (1) Chest pain Status: Resolved Current/Historical Medications Scheduled Multiple Vitamins W/ Minerals (Womens One Daily), 1 TAB PO DAILY Allergies Coded Allergies: Minocycline (Verified Allergy, Severe, ANAPHYLAXIS, 07/10/17) swelling Vital Signs Date Time Temp Pulse Resp B/P (MAP) Pulse Ox O2 Delivery O2 Flow Rate FiO2 07/10/17 10:21 79 18 101/54 98 07/10/17 09:39 36.7 82 18 111/72 100 Room Air Medications Administered Medications (Trade) Dose Ordered Sig/Danni Route Start Time Stop Time Status Last Admin Dose Admin Rabies Vaccine Human Diploid Cell (Imovax Rabies) 2.5 interunit ONCE ONCE IM. 07/10/17 10:00 07/10/17 10:01 DC 07/10/17 10:00 2.5 INTERUNIT Departure Information Impression Primary Impression: Rabies, need for prophylactic vaccination against Dispostion Home / Self-Care Condition GOOD Referrals No Doctor, Assigned (PCP) Patient Instructions My [facility] Additional Instructions You were seen in the emergency department for the last rabies vaccination injection today. Please return with any new/concerning symptoms.
[2017-07-10] MEDS ORDERED: RABIES VACCINE (IMOVAX) HUMAN DIPL CELL 2.5 INTER.UNIT/ML SYR IM. ONE (10:00)
[2017-07-10 10:21] VITALS: BP 101/54; PULSE 79; O2SAT 98
== END 2017-07-10 10:22 | disposition home or self-care (01) ==
LOC: C.EDB 09:35
DX: Z20.3 Contact with and (suspected) exposure to rabies (principal); Z23 Encounter for immunization

== ENCOUNTER 2018-06-28 16:19 | Inpatient (IN) ==
[2018-06-28] MEDS ORDERED: ePHEDrine sulfate 50 MG/ML AMP ONE ×2 (16:23→16:26)
[2018-06-28] MEDS ORDERED: BUPIVACAINE 0.25% 30 ML VIAL ONE ×2 (16:23→16:26)
[2018-06-28] MEDS ORDERED: fentaNYL citrate 100 MCG/2 ML VIAL ONE ×2 (16:23→16:27)
[2018-06-28] MEDS ORDERED: fentaNYL 2MCG/ML ROPIV 1.25MG/ML 100 ML BAG EPI ONE ×2 (16:24→16:27)
[2018-06-28] MEDS ORDERED: LACTATED RINGER'S 1,000 ML IV PRN ×2 (16:27→17:06)
[2018-06-28] MEDS ORDERED: OXYTOCIN 30 UNITS/500 ML BAG IV PRN (16:27)
[2018-06-28] MEDS ORDERED: LACTATED RINGER'S 1,000 ML IV SCH (16:30)
--- NOTE | 2018-06-28 16:38 | Anesthesiology Consultation ---
Date of Service June 28, 2018 Assessment & Plan Chart Review Chart Review: Patient NOT seen in Pre Admission Testing and Acceptable Risk for Labor Epidural Consults Requested none ASA ASA2 Proposed Anesthesia Anesthesia Type: Labor Epidural and CSE Risk / Benefits Reviewed With: PT / POA / Parent / Guardian, Accepts Plan and Informed Consent Obtained NPO Date Last Intake of Fluids: 06/28/18 Time Last Intake of Fluids: 16:00 Date Last Intake of Solids: 06/28/18 Time Last Intake of Solids: 13:30 History Allergies Allergy/AdvReac Type Severity Reaction Status Date / Time minocycline Allergy Severe ANAPHYLAXIS Verified 07/10/17 09:54 Medications Home Medications Medication Instructions Recorded Confirmed Last Taken MULTIPLE VITAMINS W/ MINERALS 1 tab PO DAILY #0 06/26/17 06/28/18 Unknown (WOMENS ONE DAILY) [id number] acid 1 tab PO DAILY 06/28/18 06/28/18 06/28/18 07:00 Past Anesthesia History No Hx of Anesthesia Complications and No Family Hx of Anesthesia Complications History of PONV No Motion Sickness Screening History of Motion Sickness: No Exercise / Class Metabolic Activity II 4-5 Yardwork/Stairs/Walk up hill Review of Systems no chest pain or sob Physical Exam Vital Signs Last Vital Signs Pulse 82 06/28/18 16:35 BP 132/78 06/28/18 16:35 Pulse Ox 100 06/28/18 16:34 ENMT Mouth: no TMJ abnormality Thyromental Distance: > or= 3.5 Finger Breadths Mallampati Class: II Neck normal visual inspection Respiratory normal respiratory effort Auscultation: lungs clear to auscultation bilaterally Cardiovascular Rate/Rhythm: regular rate and regular rhythm Musculoskeletal Spine: normal cervical ROM Neurologic moves all extremities Psychiatric Orientation: alert and oriented x 3
[2018-06-28 17:05] LABS: Hematocrit (blood only) 37.4 % (37-47); Hemoglobin 13.2 g/dL (12.0-16.0); Mean Corpuscular Volume 93.3 fL (80-100); Mean Platelet Volume 9.6 fL (7.4-10.4); Platelet Count 181 K/uL (130-400); RDW Coefficient of Variation 12.5 % (11.5-14.5); Red Blood Count 4.01 M/uL (4.2-5.4); White Blood Count 11.56 K/uL (4.8-10.8)
[2018-06-28] MEDS ORDERED: ONDANSETRON INJ 2 MG/ML 2 ML VIAL IV PRN (17:06)
[2018-06-28] MEDS ORDERED: NALOXONE HCL 1 MG in SODIUM CHLORIDE 0.9% 1000ML 1,000 ML IV PRN (17:06)
[2018-06-28] MEDS ORDERED: NALBUPHINE HCL INJ 10 MG/ML AMP IV PRN (17:06)
[2018-06-28] MEDS ORDERED: fentaNYL 2MCG/ML ROPIV 1.25MG/ML 100 ML BAG EPI PRN (17:06)
[2018-06-28] MEDS ORDERED: DiphenhydrAMINE HCL 50 MG/ML VIAL IV PRN (17:06)
[2018-06-28] MEDS ORDERED: ePHEDrine sulfate 50 MG/ML AMP IV PRN (17:06)
[2018-06-28] MEDS ORDERED: NALOXONE HCL 0.4 MG/1 ML VIAL/CARP IV PRN (17:06)
[2018-06-28 17:27] LABS: Mean Corpuscular Hgb Conc 35.3 g/dL (32-36)
--- NOTE | 2018-06-28 18:14 | Procedure Note ---
Vaginal Delivery Summary Date of Service June 28, 2018 Manuela pushed to deliver a viable in OA position. The shoulders delivered without difficulty, followed by the remainder of the . It was placed on maternal abdomen, where cord was doubly clamped, then cut by FOB. Placenta S/I/3VC and sent for exam due to circumvallate appearance. Second degree perineal laceration repaired with vicryl in usual manner. Fundus firm and lochia minimal at completion of delivery.
[2018-06-28] MEDS ORDERED: ACETAMINOPHEN 325 MG TAB PO PRN (18:29)
[2018-06-28] MEDS ORDERED: BENZOCAINE 20% AER SPR 82.5 GM CAN EXT PRN (18:29)
[2018-06-28] MEDS ORDERED: OXYCODONE/ACETAMINOPHEN 5mg/325mg TAB PO PRN (18:29)
[2018-06-28] MEDS ORDERED: SUPERCREAM 0.870% 15 GM JAR EXT PRN (18:29)
[2018-06-28] MEDS ORDERED: HYDROCORTISONE ACETATE 25 MG SUPP PR PRN (18:29)
[2018-06-28] MEDS ORDERED: DIPHTHERIA/TETANUS/PERTUSSIS 0.5 ML SYR/VIAL IM ONE (18:29)
[2018-06-28] MEDS ORDERED: IBUPROFEN 600 MG TAB PO ONE (19:22)
[2018-06-29] MEDS: IBUPROFEN 600 MG TAB PO PRN ×5 (03:24→22:11)
--- NOTE | 2018-06-29 04:14 | Anesthesia Procedure Note ---
Date of Service June 29, 2018 Anesthesia Post Epidural Note Vital Signs Vital Signs: Temp Pulse Resp BP Pulse Ox 36.8 C 63 18 104/62 97 06/28/18 23:30 06/28/18 23:30 06/28/18 23:30 06/28/18 23:30 06/28/18 23:30 Pain Intensity Bilateral Abdomen: Pain Intensity: 2 Notes Mental Status: alert / awake / arousable and participated in evaluation Nausea / Vomiting: adequately controlled Pain: adequately controlled Airway Patency, RR, SpO2: stable & adequate BP & HR: stable & adequate Hydration State: stable & adequate Neuraxial Anesthesia: was administered and sensory block is resolving Anesthetic Complications: no major complications apparent and Pt Satisfied with anesthetic care Epidural: Removed without complications and With tip intact
[2018-06-29 07:07] LABS: Hematocrit (blood only) 36.3 % (37-47); Hemoglobin 12.7 g/dL (12.0-16.0)
--- NOTE | 2018-06-29 07:37 | Obstetrical Progress Note ---
Date of Service June 29, 2018 Assessment & Plan (1) state: Recovering normally. May be interested in discharge. Present on Admission?: No Subjective Ambulation: ambulating normally Voiding: no voiding problems Passing Gas:: Yes Diet Tolerance:: regular diet Lochia:: Small Feeding Type:: breast feeding Physical Exam Vital Signs (Past 24 Hours) Last Vital Signs Temp 36.5 C 06/29/18 03:34 Pulse 56 L 06/29/18 03:34 Resp 18 06/29/18 03:34 BP 119/83 06/29/18 03:34 Pulse Ox 99 06/29/18 03:34 Constitutional WD/WN, vitals as above Respiratory normal respiratory effort, lungs clear to auscultation Cardiovascular RRR, no murmur, no edema Gastrointestinal (Abdomen) soft, postgravid Psychiatric A+Ox3, euthymic affect Genitourinary OB Exam Abdomen: + fundal height Fundus: + firm and + relation to umbilicus (- 1); not tender Results & Data Laboratory Results Laboratory Results - last 24 hr 06/28/18 06/29/18 16:38 06:34 WBC 11.56 H RBC 4.01 L Hgb 13.2 12.7 Hct 37.4 36.3 L MCV 93.3 MCH 32.9 MCHC 35.3 RDW Std Deviation 42.0 RDW Coeff of Suki 12.5 Plt Count 181 MPV 9.6
[2018-06-29] MEDS: PRENATAL VITAMIN 1 TAB PO SCH (08:04)
[2018-06-29] MEDS: DOCUSATE SODIUM 100 MG CAP PO SCH ×2 (10:45→20:40)
[2018-06-30] MEDS: IBUPROFEN 600 MG TAB PO PRN (07:54)
[2018-06-30] MEDS: DOCUSATE SODIUM 100 MG CAP PO SCH (07:54)
[2018-06-30] MEDS: PRENATAL VITAMIN 1 TAB PO SCH (07:54)
--- NOTE | 2018-06-30 09:32 | Obstetrical Progress Note ---
Date of Service June 30, 2018 Assessment & Plan (1) state: Doing well. Plan d/c. Instructions given. Day #:: 2 Subjective Ambulation: ambulating normally Voiding: no voiding problems Passing Gas:: Yes Diet Tolerance:: regular diet Lochia:: Small Feeding Type:: breast feeding Patient doing well. No concerns. Physical Exam Vital Signs (Past 24 Hours) Last Vital Signs Temp 97.9 F 06/29/18 23:55 Pulse 56 L 06/29/18 23:55 Resp 18 06/29/18 23:55 BP 111/72 06/29/18 23:55 Pulse Ox 96 06/29/18 15:15 Constitutional WD/WN, vitals as above Cardiovascular Extremities: no calf tenderness, no pedal edema and no edema Gastrointestinal (Abdomen) soft, nd, nd Fundus firm at u
== END 2018-06-30 12:22 | disposition home or self-care (01) | DRG 807 ==
LOC: OPB 16:19 → 4S1 16:20 → 4S2 20:10

== ENCOUNTER 2022-05-18 23:05 | Inpatient (IN) ==
--- NOTE | 2022-05-19 00:50 | History & Physical Report ---
Date of Service May 19, 2022 Assessment & Plan (1) contractions: (2) Type 1 diabetes mellitus during : Plan No active labor but ctx regular and recommend continued evaluation in L&D. FHTs categ 1. Will need to recheck cx in about 2hr from previous at least to start or sooner if her status or status change. History of Present Illness Chief Complaint: contractions Primary Care Provider: Garry Huggins 37yo at 36+wks ega presents to L&D after calling noting ctx q5-7min. Patient was seen in office yesterday and was examined with cx 2-3cm/80% and baby low. She began with ctx this evening and called me with above concerned about labor. Was not breathing with ctx on phone. Membranes not ruptured but says they never have spont. Prior term births x 2 but with 2nd was rapid. Offered eval in L&D and accepted. Nurse exam on arrival 3-4cm/80/-2. Ctx regular but per nurse pt not visibly painful. PNC c/b 1. Type 1DM 2. GBS unknown, specimen pending PNL rh pos, ri, gbs pending Allergies Allergy/AdvReac Type Severity Reaction Status Date / Time minocycline Allergy Severe Joint Pain Verified 05/18/22 23:30 Home Medications Medication Instructions Recorded Confirmed Type cholecalciferol (vitamin D3) 50 50 mcg PO DAILY 03/08/20 05/18/22 History mcg (2,000 unit) capsule lancets 30 gauge (OneTouch Delica #400 ea 03/25/20 05/18/22 Rx Lancets) BD Ultra-Fine Chanel Pen Needle 32 #600 ea 04/26/20 05/18/22 Rx gauge x 5/32" (pen needle, diabetic) Dexcom G6 Scrap Yard Worker (blood-glucose #1 ea 04/26/20 05/18/22 Rx meter,continuous) Dexcom G6 Sensor (blood-glucose #9 ea 04/26/20 05/18/22 Rx sensor) Dexcom G6 Transmitter #1 ea 04/26/20 05/18/22 Rx (blood-glucose transmitter) glucagon 1 mg solution for 1 mg subcut Q20M PRN hypoglycemia 10/26/20 05/18/22 Rx injection (Glucagon Emergency Kit) #1 ea insulin pump cartridge,automated #1 ea 09/23/21 05/18/22 Rx dose,BT with controller subcutaneous (Omnipod 5 G6 Intro Kit (Gen 5) subcutaneous cartridge with controller) Saccharomyces boulardii [Daily PO 11/03/21 05/18/22 History Probiotic (S. boulardii)] calcium carbonate 600 mg calcium 600 mg PO DAILY 11/03/21 05/18/22 History (1,500 mg) tablet (Calcium) magnesium oxide 400 mg PO DAILY 11/03/21 05/18/22 History prenat.vits,ricki,prx-yhbs-udifs 1 tab PO DAILY 11/03/21 05/18/22 History insulin aspart U-100 100 unit/mL See Rx Instructions .Route .COMPLEX 11/07/21 05/18/22 History subcutaneous cartridge (Novolog PenFill U-100 Insulin aspart) OneTouch Verio test strips (blood #100 ea 12/26/21 05/18/22 Rx sugar diagnostic) acetone (urine) test (Ketostix #50 ea 12/26/21 05/18/22 Rx strips) insulin pump cart,automated,BT #30 ea 01/12/22 05/18/22 Rx (Omnipod 5 G6 Pods (Gen 5) subcutaneous cartridge) insulin aspart U-100 100 unit/mL 30 unit (0.3 mL) subcut DAILY #10 03/17/22 05/18/22 Rx subcutaneous solution (Novolog mL U-100 Insulin aspart) aspirin 81 mg tablet,delayed 81 mg PO DAILY 04/03/22 05/18/22 History release (Adult Low Dose Aspirin) Patient History Medical History (Updated 05/19/22 @ 00:49 by Chiquita Mosquera MD, FACOG) Diabetes type 1, controlled H/O varicella state Surgical History H/O breast augmentation H/O colposcopy with cervical biopsy 10/20/19 CIN1 04/17/[address] Mosquera LEATHA 2015 Dr. Kana ZHANG 1 History of tonsillectomy and adenoidectomy Hx of LASIK 07/2014 S/P tooth extraction 1997 Family History Mother Dyslipidemia Adenocarcinoma of appendix Hypertension Grandfather (Maternal) Colorectal cancer Denies family history of Ovarian cancer Prostate cancer Myocardial infarction Breast cancer Uterine cancer Social History Smoking Status: Never smoker Second Hand Exposure: No; Hx Alcohol Use: No Hx Substance Use: No Preferred Language: German Communication Ability: Effective Pattern Finisher Required: No Beliefs That Will Affect Care: None marital status: marital status details: Inocente [phone] Current Living Situation: Spouse and Family Current Living Situation Comment: lives with spouse, 2 children, 1 dog. 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 @ [employer] Other Information That Helps Us Care for You: No Feels Safe at Home: Yes Dental Care, Regularly: Yes Assistive Devices: None Review of Systems as per Subjective / HPI Physical Exam Constitutional: WD/WN, vitals as above Genitourinary: OB Exam Monitor Tracing: + external FHT monitor used, + external uterine monitor used (q2-6), + category I and + normal FHT variability strip review only Results & Data ([facility]) Vital Signs (Past 12 Hours) Vital Signs Temp Pulse Resp BP 05/18/22 23:33 98.4 F 18 05/18/22 23:25 71 119/72 Coding Level of Care Code None Diagnoses contractions O47.00 Type 1 diabetes mellitus during O24.019
[2022-05-19] MEDS ORDERED: LACTATED RINGER'S 1,000 ML IV SCH (02:30)
[2022-05-19] MEDS ORDERED: BETAMETH SOD PHOS/ACETATE IA 6 MG/ML IM STA (03:21)
[2022-05-19] MEDS ORDERED: LACTATED RINGER'S 1,000 ML IV PRN (03:21)
[2022-05-19] MEDS ORDERED: PENICILLIN G POTASSIUM 6 MU in DEXTROSE 5% 250 ML IV STA (03:21)
[2022-05-19] MEDS ORDERED: LIDOCAINE 1% LOCAL 20 ML VIAL INFIL PRN (03:21)
[2022-05-19] MEDS ORDERED: OXYTOCIN 30 UNITS/500 ML BAG IV PRN ×2 (03:21→06:11)
[2022-05-19] MEDS ORDERED: ePHEDrine sulfate 50 MG/ML AMP ONE (03:23)
[2022-05-19] MEDS ORDERED: fentaNYL 2MCG/ML ROPIVACAINE 1.25MG/ML 100 ML BAG EPI ONE (03:24)
[2022-05-19] MEDS ORDERED: SODIUM CHLORIDE 0.9% INJ 10 ML VIAL ONE (03:24)
[2022-05-19] MEDS ORDERED: fentaNYL citrate 100 MCG/2 ML VIAL ONE (03:24)
[2022-05-19] MEDS ORDERED: LIDOCAINE 2%/EPINEPHRINE 1:200,000 20 ML SDV ONE (03:24)
[2022-05-19] MEDS ORDERED: BUPIVACAINE 0.25% 30 ML VIAL ONE (03:24)
--- NOTE | 2022-05-19 03:29 | Labor Progress Brief Note ---
Date of Service May 19, 2022 Subjective pt with continued painful ctx. was rechecked and was 4cm and now 5-6cm with regular painful ctx. Assessment & Plan (1) labor in third trimester: Plan Admit, iv had been placed. start pcn for unknown gbs status. rec betamethasone. labs ordered. she may have epidural if desires. check bsg and pt then may use her own insulin pump and glucose monitor to keep bsg 80-120. fhts categ 1. Physical Exam Constitutional: WD/WN, vitals as above Genitourinary: sve as above Results & Data ([facility]) Vital Signs (Past 12 Hours) Vital Signs Temp Pulse Resp BP 05/18/22 23:33 98.4 F 18 05/18/22 23:25 71 119/72 Coding Level of Care Code None Diagnoses labor in third trimester O60.03
[2022-05-19] MEDS ORDERED: CARBOHYDRATES FOR HYPOGLYCEMIA PO PRN ×2 (03:45→06:15)
[2022-05-19] MEDS ORDERED: GLUCOSE 10 TAB/TUBE PO PRN ×2 (03:45→06:15)
[2022-05-19] MEDS ORDERED: GLUCOSE 40% GEL 15 GM TUBE PO PRN ×2 (03:45→06:15)
[2022-05-19] MEDS ORDERED: INSULIN ASPART 100 UNITS/ML VIAL SC PRN (03:45)
[2022-05-19] MEDS ORDERED: GLUCAGON FOR INJ 1 MG VIAL IM PRN ×2 (03:45→06:15)
[2022-05-19] MEDS ORDERED: DEXTROSE 50% 50 ML SYRINGE IV PRN ×2 (03:45→06:15)
[2022-05-19] MEDS ORDERED: NALOXONE HCL 1 MG in SODIUM CHLORIDE 0.9% 1000ML 1,000 ML IV PRN (03:46)
[2022-05-19] MEDS ORDERED: NALBUPHINE HCL INJ 10 MG/ML AMP IV PRN (03:46)
[2022-05-19] MEDS ORDERED: NALOXONE HCL 0.4 MG/1 ML VIAL/CARP IV PRN (03:46)
[2022-05-19] MEDS ORDERED: diphenhydrAMINE 50 MG/ML VIAL IV PRN (03:46)
[2022-05-19] MEDS ORDERED: ePHEDrine sulfate 50 MG/ML AMP IV PRN (03:46)
[2022-05-19] MEDS ORDERED: fentaNYL 2MCG/ML ROPIVACAINE 1.25MG/ML 100 ML BAG EPI PRN (03:46)
--- NOTE | 2022-05-19 03:46 | Anesthesiology Consultation ---
Date of Service May 19, 2022 Assessment & Plan (1) Encounter for pre-operative examination: Chart Review Chart Review: Patient NOT seen in Pre Admission Testing and Acceptable Risk for Labor Epidural Consults Requested none History Height/Weight Height: 5 ft 7 in Weight: 62.596 kg Allergies Allergy/AdvReac Type Severity Reaction Status Date / Time minocycline Allergy Severe Joint Pain Verified 05/18/22 23:30 Medications Home Medications Medication Instructions Recorded Confirmed Last Taken cholecalciferol (vitamin D3) 50 50 mcg PO DAILY 03/08/20 05/18/22 05/18/22 mcg (2,000 unit) capsule lancets 30 gauge (OneTouch Delica #400 ea 03/25/20 05/18/22 Unknown Lancets) BD Ultra-Fine Chanel Pen Needle 32 #600 ea 04/26/20 05/18/22 Unknown gauge x 5/32" (pen needle, diabetic) Dexcom G6 Adult Caregiver (blood-glucose #1 ea 04/26/20 05/18/22 Unknown meter,continuous) Dexcom G6 Sensor (blood-glucose #9 ea 04/26/20 05/18/22 Unknown sensor) Dexcom G6 Transmitter #1 ea 04/26/20 05/18/22 Unknown (blood-glucose transmitter) glucagon 1 mg solution for 1 mg subcut Q20M PRN hypoglycemia 10/26/20 05/18/22 Unknown injection (Glucagon Emergency Kit) #1 ea insulin pump cartridge,automated #1 ea 09/23/21 05/18/22 Unknown dose,BT with controller subcutaneous (Omnipod 5 G6 Intro Kit (Gen 5) subcutaneous cartridge with controller) Saccharomyces boulardii [Daily PO 11/03/21 05/18/22 05/18/22 Probiotic (S. boulardii)] calcium carbonate 600 mg calcium 600 mg PO DAILY 11/03/21 05/18/22 05/18/22 (1,500 mg) tablet (Calcium) magnesium oxide 400 mg PO DAILY 11/03/21 05/18/22 05/18/22 prenat.vits,ricki,slk-cvpl-kkhpz 1 tab PO DAILY 11/03/21 05/18/22 05/18/22 insulin aspart U-100 100 unit/mL See Rx Instructions .Route .COMPLEX 11/07/21 05/18/22 05/18/22 subcutaneous cartridge (Novolog PenFill U-100 Insulin aspart) OneTouch Verio test strips (blood #100 ea 12/26/21 05/18/22 Unknown sugar diagnostic) acetone (urine) test (Ketostix #50 ea 12/26/21 05/18/22 Unknown strips) insulin pump cart,automated,BT #30 ea 01/12/22 05/18/22 Unknown (Omnipod 5 G6 Pods (Gen 5) subcutaneous cartridge) insulin aspart U-100 100 unit/mL 30 unit (0.3 mL) subcut DAILY #10 03/17/22 05/18/22 05/18/22 subcutaneous solution (Novolog mL U-100 Insulin aspart) aspirin 81 mg tablet,delayed 81 mg PO DAILY 04/03/22 05/18/22 05/18/22 release (Adult Low Dose Aspirin) Past Medical History Medical History Diabetes type 1, controlled H/O varicella state Past Family History Family History Mother Dyslipidemia Adenocarcinoma of appendix Hypertension Grandfather (Maternal) Colorectal cancer Denies family history of Ovarian cancer Prostate cancer Myocardial infarction Breast cancer Uterine cancer Past Surgical History Surgical History H/O breast augmentation H/O colposcopy with cervical biopsy 10/20/19 CIN1 04/17/[address] Mosquera LEATHA [address] Roger LEATHA 1 History of tonsillectomy and adenoidectomy Hx of LASIK 07/2014 S/P tooth extraction 1997 Social History Smoking Status: Never smoker Hx Alcohol Use: No Hx Substance Use: No substance use type: does not use Physical Exam Vital Signs Last Vital Signs Temp 98.4 F 05/18/22 23:33 Pulse 71 05/18/22 23:25 Resp 18 05/18/22 23:33 BP 119/72 05/18/22 23:25 Testing Laboratory Results 05/19/22 05/19/22 03:43 03:41 POC Glucose 76 74
[2022-05-19 04:10] LABS: Hematocrit (blood only) 36.9 % (37.0-47.0); Hemoglobin 12.9 g/dl (12.0-16.0); Mean Corpuscular Hemoglobin 33.9 pg (25.0-34.0); Mean Corpuscular Volume 97.1 fL (80.0-100.0); Mean Platelet Volume 9.5 fL (9.4-12.4); Platelet Count 140 K/uL (130-400); RDW Coefficient of Variation 12.5 % (11.5-14.5); RDW Standard Deviation 43.8 fL (36.4-46.3); White Blood Count 13.18 K/ul (4.8-10.8)
[2022-05-19] MEDS ORDERED: PENICILLIN POTASSIUM MU IV STA (05:15)
[2022-05-19] MEDS ORDERED: SODIUM CHLORIDE 0.9% IV STA (05:15)
--- NOTE | 2022-05-19 05:16 | Labor Progress Brief Note ---
Date of Service May 19, 2022 Subjective comfortable after epidural. pcn was infusing but bsg rising. pt now 9+cm with bulging membranes Assessment & Plan (1) labor in third trimester: Plan unknown gbs status but pt ready to proceed with arom to delivery. not able to infuse pcn as quickly as usual but given advancing labor will not be adeq treated. Admission and Anticipated Discharge Date Admission Date: May 19, 2022 Physical Exam Constitutional: WD/WN, vitals as above Genitourinary: Manual OB Exam: + cervical dilation (rim), + cervical effacement 100%, + station -1 and + amniotic fluid (arom) clear OB Exam Monitor Tracing: + external FHT monitor used, + external uterine monitor used (q3), + category I and + normal FHT variability Results & Data ([place]) Vital Signs (Past 12 Hours) Vital Signs Temp Pulse Resp BP Pulse Ox 05/18/22 23:33 98.4 F 18 05/19/22 05:11 88 100 05/19/22 05:06 87 100 05/19/22 05:01 93 H 99 05/19/22 04:59 100 H 116/62 05/19/22 04:56 90 100 05/19/22 04:55 80 94 05/19/22 04:51 98 H 99 05/19/22 04:46 83 100 05/19/22 04:44 95 H 117/57 L 05/19/22 04:41 84 99 05/19/22 04:37 89 110/61 05/19/22 04:36 95 H 98 05/19/22 04:33 84 113/62 05/19/22 04:32 81 18 110/63 05/19/22 04:31 88 100 05/19/22 04:27 82 114/64 05/19/22 04:26 82 100 05/19/22 04:22 88 110/64 05/19/22 04:21 83 99 05/19/22 04:19 80 113/65 05/19/22 04:16 99 05/19/22 04:16 88 05/19/22 04:16 87 112/62 05/19/22 04:13 98.8 F 85 18 114/63 05/19/22 04:11 87 100 05/19/22 04:10 86 114/65 05/19/22 04:06 77 100 05/19/22 04:07 73 114/57 L 05/19/22 04:04 89 18 116/70 05/19/22 04:01 99 05/19/22 04:01 103 H 05/19/22 04:01 88 118/72 05/19/22 03:56 101 H 100 05/18/22 23:25 71 119/72 Coding Level of Care Code None Diagnoses labor in third trimester O60.03
[2022-05-19] MEDS ORDERED: PENICILLIN POTASSIUM MU IV PRN (05:18)
[2022-05-19] MEDS ORDERED: SODIUM CHLORIDE 0.9% IV PRN (05:18)
--- NOTE | 2022-05-19 05:59 | Delivery Summary ---
Vaginal Delivery Summary Date of Service May 19, 2022 Vaginal Delivery Summary and 2nd Degree LAC The patient dilated to complete and pushed to deliver a viable female infant Apgars 8 and 9 via over 2nd degree perineal laceration. Mouth and nose bulb suctioned at perineum. Shoulders and body delivered with ease. Infant was vigorous and crying at . Cord clamped at 30 seconds of life and infant to maternal abdomen where the cord was then doubly clamped and cut. Placenta delivered spontaneously and intact, three-vessel cord. Hemostasis achieved with dilute pitocin and uterine massage and drainage of the bladder for approximately 400 cc under sterile conditions. Laceration repaired in usual fashion with 3-0 vicryl. Cervix and sulci intact. EBL 300 cc. Mother and baby stable in recovery. [facility] Vaginal Delivery Charge Delivery Type Details: and 2nd Degree LAC
[2022-05-19] MEDS ORDERED: OR MISCELLANEOUS MED XX ONE (06:03)
[2022-05-19] MEDS ORDERED: ACETAMINOPHEN 325 MG TAB PO PRN (06:11)
[2022-05-19] MEDS ORDERED: DIPHTHERIA/TETANUS/PERTUSSIS 0.5mL SYR/VIAL (Age 7+yrs) IM ONE (06:11)
[2022-05-19] MEDS ORDERED: HYDROCORTISONE ACETATE 25 MG SUPP PR PRN (06:11)
[2022-05-19] MEDS ORDERED: bisacodyL 10 MG SUPP PR PRN (06:11)
[2022-05-19] MEDS ORDERED: BENZOCAINE 20% AER SPR 82.5 GM CAN EXT PRN (06:11)
[2022-05-19] MEDS ORDERED: oxyCODONE/ACETAMINOPHEN 5mg/325mg TAB PO PRN (06:11)
[2022-05-19] MEDS ORDERED: IBUPROFEN 600 MG TAB PO ONE (06:12)
[2022-05-19] MEDS ORDERED: OXYTOCIN 20 UNITS in LACTATED RINGER'S 1,000 ML IV SCH (06:15)
[2022-05-19] MEDS ORDERED: PENICILLIN G POTASSIUM 3 MU in DEXTROSE 5% 100 ML IV PRN (06:21)
--- NOTE | 2022-05-19 06:57 | Anesthesia Procedure Note ---
Date of Service May 19, 2022 Anesthesia Post Epidural Note Vital Signs Vital Signs: Temp Pulse Resp BP Pulse Ox 37.1 C 75 16 118/56 L 99 05/19/22 04:13 05/19/22 06:53 05/19/22 06:23 05/19/22 06:53 05/19/22 05:46 Pain Intensity Bilateral Lower Abdomen: Pain Intensity: 1 Notes Mental Status: alert / awake / arousable and participated in evaluation Patient Amnestic to Procedure: No Nausea / Vomiting: adequately controlled Pain: adequately controlled Airway Patency, RR, SpO2: stable & adequate BP & HR: stable & adequate Hydration State: stable & adequate Neuraxial Anesthesia: was administered and sensory block is resolving Anesthetic Complications: no major complications apparent and Pt Satisfied with anesthetic care Epidural: Removed without complications and With tip intact
[2022-05-19] MEDS: PRENATAL VITAMIN 1 TAB PO SCH (09:25)
[2022-05-19] MEDS: DOCUSATE SODIUM 100 MG CAP PO SCH ×2 (09:25→21:17)
[2022-05-19] MEDS: MAGNESIUM OXIDE 400 MG TAB PO SCH (12:40)
[2022-05-19] MEDS: IBUPROFEN 600 MG TAB PO PRN ×3 (12:40→22:40)
[2022-05-19] MEDS: INSULIN, Rapid-Acting PUMP SCH ×2 (18:49→21:18)
[2022-05-20] MEDS: IBUPROFEN 600 MG TAB PO PRN ×4 (02:41→20:11)
--- NOTE | 2022-05-20 07:30 | Obstetrical Progress Note ---
Date of Service May 20, 2022 Assessment & Plan (1) Normal course: PPD#1 doing well. No concerns. Bottle feeding. Routine care. Subjective Ambulation: ambulating normally Voiding: no voiding problems Diet Tolerance:: regular diet Lochia:: Moderate Review of Systems All systems reviewed & are unremarkable except as noted in HPI & below Physical Exam Constitutional WD/WN, vitals as above no acute distress Respiratory normal respiratory effort Cardiovascular Rate/Rhythm: regular rate and regular rhythm Gastrointestinal (Abdomen) Inspection/Auscultation: abdomen normal to inspection; abdomen not distended Percussion/Palpation: abdomen soft Genitourinary OB Exam Abdomen: + fundal height Fundus: + firm; not tender Results & Data ([facility]) Vital Signs (Past 12 Hours) Vital Signs Temp Pulse Resp BP Pulse Ox O2 Del Method 05/20/22 03:12 36.9 C 70 18 105/66 99 Room Air 05/19/22 19:36 36.9 C 71 18 101/57 L 100 Room Air 05/19/22 22:54 36.8 C 68 18 112/70 98 Room Air
[2022-05-20] MEDS: PRENATAL VITAMIN 1 TAB PO SCH (08:36)
[2022-05-20] MEDS: DOCUSATE SODIUM 100 MG CAP PO SCH ×2 (08:36→19:29)
[2022-05-20] MEDS: INSULIN, Rapid-Acting PUMP SCH ×4 (08:37→22:37)
[2022-05-20] MEDS: MAGNESIUM OXIDE 400 MG TAB PO SCH (08:38)
[2022-05-21] MEDS: IBUPROFEN 600 MG TAB PO PRN ×2 (05:06→09:33)
[2022-05-21] MEDS: INSULIN, Rapid-Acting PUMP SCH ×2 (08:30→12:03)
[2022-05-21] MEDS: MAGNESIUM OXIDE 400 MG TAB PO SCH (08:39)
[2022-05-21] MEDS: PRENATAL VITAMIN 1 TAB PO SCH (08:39)
[2022-05-21] MEDS: DOCUSATE SODIUM 100 MG CAP PO SCH (08:39)
--- NOTE | 2022-05-21 10:15 | Obstetrical Progress Note ---
Date of Service May 21, 2022 Assessment & Plan (1) Normal course: satisfactory course continue current care plan discharge today follow up in 6 weeks Subjective Ambulation: ambulating normally Voiding: no voiding problems Passing Gas:: Yes Diet Tolerance:: regular diet Lochia:: Small Feeding Type:: breast feeding blood sugars have been stable. she decreased her basal insulin rate minimally since delivery. Review of Systems All systems reviewed & are unremarkable except as noted in HPI & below Physical Exam Constitutional WD/WN, vitals as above Psychiatric A+Ox3, euthymic affect Genitourinary OB Exam Abdomen: + fundal height Fundus: + firm and + relation to umbilicus (3 below) Results & Data ([facility]) Vital Signs (Past 12 Hours) Vital Signs Temp Pulse Resp BP Pulse Ox O2 Del Method 05/21/22 08:30 Room Air 05/21/22 08:30 98.4 F 72 18 112/75 100 Room Air 05/20/22 22:55 98.1 F 78 20 106/65
== END 2022-05-21 12:35 | disposition home or self-care (01) | DRG 805 ==
LOC: OPB 23:05 → 4S1 23:09 → 4E1 05-19 08:58

== ENCOUNTER 2023-12-23 00:19 | Inpatient (IN) ==
[2023-12-23] MEDS ORDERED: LIDOCAINE 1% LOCAL 20 ML VIAL INFIL PRN (01:01)
[2023-12-23] MEDS ORDERED: OXYTOCIN 30 UNITS/NSS 30 UNITS/500 ML BAG IV PRN (01:01)
[2023-12-23] MEDS: LACTATED RINGER'S 1,000 ML IV PRN (01:03)
--- NOTE | 2023-12-23 01:03 | History & Physical Report ---
Date of Service December 23, 2023 Assessment & Plan (1) Elderly multigravida: (2) Type 1 diabetes mellitus during : Plan Admit to L&D. EFM/toco. Labs. She prefers to continue her own management of her diabetes via pump. Will check glucose with this initial lab draw. She desires epidural. History of Present Illness Chief Complaint: contractions Primary Care Provider: Garry Phoenix Huggins 38yo @ 39 03/18, came to L&D with contractions. Had a small amount of vaginal bleeding. No leaking fluid. + movement. Type 1 diabetes, AMA. Allergies Allergy/AdvReac Type Severity Reaction Status Date / Time minocycline Allergy Severe Joint Pain Verified 12/21/23 11:24 Home Medications Medication Instructions Recorded Confirmed Type lancets 30 gauge (OneTouch Delica #400 ea 03/25/20 12/21/23 Rx Lancets) BD Ultra-Fine Chanel Pen Needle 32 #600 ea 04/26/20 12/21/23 Rx gauge x 5/32" (pen needle, diabetic) Dexcom G6 Kiln Packer (blood-glucose #1 ea 04/26/20 12/21/23 Rx meter,continuous) Dexcom G6 Sensor (blood-glucose #9 ea 04/26/20 12/21/23 Rx sensor) Dexcom G6 Transmitter #1 ea 04/26/20 12/21/23 Rx (blood-glucose transmitter) glucagon 1 mg solution for 1 mg subcut Q20M PRN hypoglycemia 10/26/20 12/21/23 Rx injection (Glucagon Emergency Kit) #1 ea insulin pump cartridge,automated #1 ea 09/23/21 12/21/23 Rx dose,BT with controller subcutaneous (Omnipod 5 G6 Intro Kit (Gen 5) subcutaneous cartridge with controller) prenat.vits,ricki,[id number] 1 tab PO DAILY 11/03/21 12/21/23 History insulin aspart U-100 100 unit/mL See Rx Instructions .Route .COMPLEX 11/07/21 12/21/23 History subcutaneous cartridge (Novolog PenFill U-100 Insulin aspart) [employer] Verio test strips (blood #100 ea 12/26/21 12/21/23 Rx sugar diagnostic) acetone (urine) test (Ketostix #50 ea 12/26/21 12/21/23 Rx strips) aspirin 81 mg tablet,delayed 81 mg PO DAILY 09/20/23 12/21/23 History release (Adult Aspirin Regimen) insulin pump cart,automated,BT #30 ea 10/01/23 12/21/23 Rx (Omnipod 5 G6 Pods (Gen 5) subcutaneous cartridge) insulin aspart U-100 100 unit/mL See Rx Instructions subcut 11/20/23 12/21/23 Rx subcutaneous solution (Novolog .COMPLEX #10 mL U-100 Insulin aspart) Patient History Medical History contractions Diabetes type 1, controlled H/O varicella state Surgical History H/O colposcopy with cervical biopsy H/O breast augmentation Hx of LASIK S/P tooth extraction History of tonsillectomy and adenoidectomy Family History Mother Dyslipidemia Adenocarcinoma of appendix Hypertension Grandfather (Maternal) Colorectal cancer Denies family history of Ovarian cancer Prostate cancer Myocardial infarction Breast cancer Uterine cancer Social History (Updated 05/18/23 @ 10:50 by Emely Sy) Smoking Status: Never smoker Second Hand Exposure: No; Do You Dip or Chew Tobacco: No; Hx Alcohol Use: No Hx Substance Use: No Preferred Language: Telugu Communication Ability: Effective Health Equipment Servicer Required: No Beliefs That Will Affect Care: None marital status: marital status details: Inocente Mendiola [phone]) [phone] Current Living Situation: Spouse and Family Current Living Situation Comment: lives with spouse, 3 children, 1 dog. 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 FHT Cat 1 [place] Q 2-3 Cephalic by bedside US. Constitutional: WD/WN, vitals as above Respiratory: normal respiratory effort, lungs clear to auscultation no respiratory distress Cardiovascular: Rate/Rhythm: regular rate and regular rhythm Gastrointestinal (Abdomen): Inspection/Auscultation: abdomen normal to inspection Percussion/Palpation: abdomen soft; abdomen nontender Gravid. No s/s chorio or abruption. Skin: no rashes, warm and dry Psychiatric: A+Ox3, euthymic affect Results & Data Vital Signs (Past 12 Hours) Vital Signs Temp Pulse Resp BP 12/23/23 00:39 36.8 C 18 12/23/23 00:33 68 128/75 Coding Level of Care Code None Diagnoses Elderly multigravida O09.529 Type 1 diabetes mellitus during O24.019
--- NOTE | 2023-12-23 01:28 | Anesthesiology Consultation ---
Date of Service December 23, 2023 Assessment & Plan (1) Encounter for pre-operative examination: Chart Review Chart Review: Patient NOT seen in Pre Admission Testing and Acceptable Risk for Labor Epidural Consults Requested none History Height/Weight Height: 5 ft 7 in Weight: 62.142 kg Allergies Allergy/AdvReac Type Severity Reaction Status Date / Time minocycline Allergy Severe Joint Pain Verified 12/21/23 11:24 Medications Home Medications Medication Instructions Recorded Confirmed Last Taken lancets 30 gauge (OneTouch Delica #400 ea 03/25/20 12/21/23 Unknown Lancets) BD Ultra-Fine Chanel Pen Needle 32 #600 ea 04/26/20 12/21/23 Unknown gauge x 5/32" (pen needle, diabetic) Dexcom G6 Rn Wellness (blood-glucose #1 ea 04/26/20 12/21/23 Unknown meter,continuous) Dexcom G6 Sensor (blood-glucose #9 ea 04/26/20 12/21/23 Unknown sensor) Dexcom G6 Transmitter #1 ea 04/26/20 12/21/23 Unknown (blood-glucose transmitter) glucagon 1 mg solution for 1 mg subcut Q20M PRN hypoglycemia 10/26/20 12/21/23 Unknown injection (Glucagon Emergency Kit) #1 ea insulin pump cartridge,automated #1 ea 09/23/21 12/21/23 Unknown dose,BT with controller subcutaneous (Omnipod 5 G6 Intro Kit (Gen 5) subcutaneous cartridge with controller) prenat.vits,ricki,ack-otja-bpevf 1 tab PO DAILY 11/03/21 12/21/23 05/18/22 insulin aspart U-100 100 unit/mL See Rx Instructions .Route .COMPLEX 11/07/21 12/21/23 05/18/22 subcutaneous cartridge (Novolog PenFill U-100 Insulin aspart) [employer] Verio test strips (blood #100 ea 12/26/21 12/21/23 Unknown sugar diagnostic) acetone (urine) test (Ketostix #50 ea 12/26/21 12/21/23 Unknown strips) aspirin 81 mg tablet,delayed 81 mg PO DAILY 09/20/23 12/21/23 Unknown release (Adult Aspirin Regimen) insulin pump cart,automated,BT #30 ea 10/01/23 12/21/23 Unknown (Omnipod 5 G6 Pods (Gen 5) subcutaneous cartridge) insulin aspart U-100 100 unit/mL See Rx Instructions subcut 11/20/23 12/21/23 Unknown subcutaneous solution (Novolog .COMPLEX #10 mL U-100 Insulin aspart) Active Medications Generic Name Dose Route Start Last Admin Trade Name Freq PRN Reason Stop Dose Admin Lactated Ringer's 1,000 mls @ 125 mls/hr 12/23/23 01:01 12/23/23 01:03 Lr IV 12/25/23 01:00 999 mls/hr .Q8H PRN Administration L&D Protocol Protocol Past Medical History Medical History contractions H/O varicella state Past Family History Family History Mother Dyslipidemia Adenocarcinoma of appendix Hypertension Grandfather (Maternal) Colorectal cancer Denies family history of Ovarian cancer Prostate cancer Myocardial infarction Breast cancer Uterine cancer Past Surgical History Surgical History H/O colposcopy with cervical biopsy 10/20/19 CIN1 04/17/[address] Mosquera LEATHA [address] Roger LEATHA 1 H/O breast augmentation Hx of LASIK 07/2014 S/P tooth extraction 1998 History of tonsillectomy and adenoidectomy Social History Smoking Status: Never smoker Do You Dip or Chew Tobacco: No Hx Alcohol Use: No Hx Substance Use: No substance use type: does not use Physical Exam Vital Signs Last Vital Signs Temp 98.2 F 12/23/23 00:39 Pulse 68 12/23/23 00:33 Resp 18 12/23/23 00:39 BP 128/75 12/23/23 00:33
[2023-12-23 01:35] LABS: Hematocrit (blood only) 38.3 % (37.0-47.0); Hemoglobin 12.9 g/dl (12.0-16.0); Mean Corpuscular Hemoglobin 32.9 pg (25.0-34.0); Mean Corpuscular Hgb Conc 33.7 g/dL (32.0-36.0); Mean Corpuscular Volume 97.7 fL (80.0-100.0); Platelet Count 159 K/uL (130-400); RDW Coefficient of Variation 12.7 % (11.5-14.5); RDW Standard Deviation 44.4 fL (36.4-46.3); Red Blood Count 3.92 M/uL (4.20-5.40); White Blood Count 9.07 K/ul (4.8-10.8)
[2023-12-23] MEDS: LIDOCAINE 2%/EPINEPHRINE 1:200,000 20 ML PF ONE (01:50)
[2023-12-23] MEDS: SODIUM CHLORIDE 0.9% PF INJ 10 ML VIAL ONE (01:50)
[2023-12-23] MEDS: BUPIVACAINE 0.25% PF 30 ML VIAL ONE (01:51)
[2023-12-23] MEDS: fentANYL 2 MCG/ML BUPIVacaine 0.125%-NSS 100ML BAG ONE (01:51)
--- NOTE | 2023-12-23 03:09 | Labor Progress Brief Note ---
Date of Service December 23, 2023 Subjective Comfortable with epidural. FHT Cat 1 [place] Q 2 SVE 10/100/0 AROM clear fluid. Will start pushing. Assessment & Plan Admission and Anticipated Discharge Date Admission Date: December 23, 2023 Results & Data Vital Signs (Past 12 Hours) Vital Signs Temp Pulse Resp BP Pulse Ox 12/23/23 03:04 99 12/23/23 03:04 90 12/23/23 03:01 76 12/23/23 03:01 111/69 12/23/23 02:59 100 12/23/23 02:59 87 12/23/23 02:54 98 12/23/23 02:54 69 12/23/23 02:49 97 12/23/23 02:49 72 12/23/23 02:47 67 12/23/23 02:47 113/70 12/23/23 02:44 98 12/23/23 02:44 67 12/23/23 02:39 99 12/23/23 02:39 77 12/23/23 02:34 99 12/23/23 02:34 69 12/23/23 02:32 69 12/23/23 02:32 117/70 12/23/23 02:30 18 12/23/23 02:30 18 12/23/23 02:29 98 12/23/23 02:29 64 12/23/23 02:24 99 12/23/23 02:24 67 12/23/23 02:19 98 12/23/23 02:19 68 12/23/23 02:17 64 12/23/23 02:17 114/68 12/23/23 02:14 100 12/23/23 02:14 64 12/23/23 02:09 100 12/23/23 02:09 68 12/23/23 02:04 100 12/23/23 02:04 70 12/23/23 02:00 64 12/23/23 02:00 105/65 12/23/23 01:59 100 12/23/23 01:59 69 12/23/23 01:58 65 12/23/23 01:58 116/63 12/23/23 01:56 71 12/23/23 01:56 114/63 12/23/23 01:54 100 12/23/23 01:54 66 12/23/23 01:54 115/62 12/23/23 01:52 66 12/23/23 01:52 117/67 12/23/23 01:51 68 12/23/23 01:51 119/69 12/23/23 01:50 65 12/23/23 01:50 124/73 12/23/23 01:49 100 12/23/23 01:49 79 12/23/23 01:48 70 12/23/23 01:48 124/73 12/23/23 01:44 92 12/23/23 01:44 70 12/23/23 01:44 99 12/23/23 01:44 72 12/23/23 01:39 100 12/23/23 01:39 89 12/23/23 01:34 98 12/23/23 01:34 75 12/23/23 00:39 36.8 C 18 12/23/23 00:33 68 128/75 Coding Level of Care Code None
[2023-12-23] MEDS: OXYTOCIN 30 UNITS/NSS 30 UNITS/500 ML BAG IV PRN (03:28)
--- NOTE | 2023-12-23 03:46 | Delivery Summary ---
Vaginal Delivery Summary Date of Service December 23, 2023 Vaginal Delivery Summary and 2nd Degree LAC Vaginal Delivery Summary: Pre-delivery diagnoses: 38yo @ 39 1/, spontaneous labor, Type 1 DM, AMA Post-delivery diagnoses: same Procedure: spontaneous vaginal delivery Surgeon: Maribell Mc DO Complications: none Findings: Viable female . Apgars: 8/9 . Weight pending, please see nursery records Estimated Q blood loss: 83 Description of delivery: The patient progressed to complete with epidural anesthesia. She then began to push. She spontaneously vaginally delivered a viable from the cephalic presentation. The head delivered in LOP position. The anterior shoulder delivered, followed by the posterior shoulder, followed by the body. Nuchal x 1, easily reduced. The baby was placed on mother's abdomen and a spontaneous cry was heard. Delayed cord clamping was employed, and the cord was doubly clamped and cut. Cord blood was obtained. The placenta was delivered spontaneously intact with a 3-vessel cord. The uteru s and vagina were swept of clots and debris. IV pitocin was given. The uterus became firm. The cervix, vagina, and perineum were inspected and 2nd degree laceration was noted and repaired with 3-0 vicryl in standard fashion. Excellent hemostasis was observed. The mother and baby are recovering in stable and good condition in the room. Sponge and instrument counts were correct x 2. Maribell Mc DO [facility] Vaginal Delivery Charge Vaginal Delivery Codes: 47484 global code for the antepartum, delivery, and post- Delivery Type Details: and 2nd Degree LAC
[2023-12-23] MEDS ORDERED: HYDROCORTISONE ACETATE 25 MG SUPP PR PRN (03:57)
[2023-12-23] MEDS: fentaNYL citrate PF 100 MCG/2 ML VIAL ONE (04:10)
[2023-12-23] MEDS: ePHEDrine sulfate 50 MG/ML AMP ONE (04:10)
[2023-12-23] MEDS: IBUPROFEN 600 MG TAB PO PRN (04:44)
[2023-12-23] MEDS: BENZOCAINE 20% SPRY 85 APPLN/85 GM CAN EXT PRN (06:13)
--- NOTE | 2023-12-23 08:01 | Anesthesia Procedure Note ---
Date of Service December 23, 2023 Anesthesia Post Epidural Note Vital Signs Vital Signs: Temp Pulse Resp BP Pulse Ox 36.9 C 60 18 111/59 L 100 12/23/23 03:45 12/23/23 05:46 12/23/23 05:45 12/23/23 05:46 12/23/23 04:10 Pain Intensity Abdomen: Pain Intensity: 5 Notes Mental Status: alert / awake / arousable and participated in evaluation Patient Amnestic to Procedure: No Nausea / Vomiting: adequately controlled Pain: adequately controlled Airway Patency, RR, SpO2: stable & adequate BP & HR: stable & adequate Hydration State: stable & adequate Neuraxial Anesthesia: was administered and sensory block resolved Anesthetic Complications: no major complications apparent and Pt Satisfied with anesthetic care Epidural: Removed without complications and With tip intact
[2023-12-23] MEDS: PRENATAL VITAMIN 1 TAB PO SCH (08:53)
[2023-12-23] MEDS: DOCUSATE SODIUM 100 MG CAP PO SCH (08:53)
[2023-12-23] MEDS ORDERED: Continuous Glucose Monitor SCH (09:00)
[2023-12-23] MEDS ORDERED: Nursing to Pharmacy Communication SCH (09:00)
[2023-12-23] MEDS ORDERED: INSULIN ASPART 100 UNITS/ML VIAL SC PRN (09:00)
[2023-12-23] MEDS: DIPHTHER/TETAN/PERTUS Vaccine (Tdap, Adol/Adult) 0.5mL IM ONE (09:00)
[2023-12-23] MEDS: ACETAMINOPHEN 325 MG TAB PO PRN (11:05)
[2023-12-23] MEDS: INSULIN, Rapid-Acting PUMP SCH (17:52)
[2023-12-23] MEDS: oxyCODONE/ACETAMINOPHEN 5mg/325mg TAB PO PRN (21:15)
[2023-12-23 23:54] VITALS: TEMP 97.9; O2SAT 98
[2023-12-24 06:06] LABS: Hematocrit (blood only) 35.3 % (37.0-47.0); Hemoglobin 12.2 g/dl (12.0-16.0)
--- NOTE | 2023-12-24 06:43 | Obstetrical Progress Note ---
Date of Service December 24, 2023 Assessment & Plan (1) state: Plan: 38yo post- day 2 s/p Feels well today, vital signs stable. Continue care. Ambulation as tolerated, bottle feeds with formula Pain control with ibuprofen Hgb stable D/C home today, follow up with Dr. Mc in 6 weeks. Admission and Anticipated Discharge Date Admission Date: December 23, 2023 Supervising Physician Co-Signing Physician Notes Resident Physician Supervision Note: I was present with Dr. Morales during the history and exam. I discussed the case with the resident and agree with the findings and plan as documented in the note. Any exceptions or clarifications are listed here: PPD#1 doing well. Desires DC home. Instructions reviewed. Documented By: Maribell Mc, DO Subjective Patient is a 38yo post- day 2 s/p Ambulation: ambulating normally Voiding: no bowel movement yet Passing gas: yes Diet Tolerance: DM1 regular diet Lochia: small Feeding Type: bottle, formula Current Pain level: 0/10 Endorses 10min of painful contractions overnight, given percocet, has not had painful contractions since then. Receiving motrin prn for pain management. Feeling well today and is interested in going home today. Review of Systems Review of Systems: no fever, body aches, chills, headache, blurry vision, chest pain, numbness/tingling. Physical Exam Physical Exam: General: patient resting comfortably, NAD, nontoxic in appearance; A&Ox4 Skin: warm, dry, intact HEENT: NC/AT, anicteric sclerae, conjunctiva w/o injection, moist mucous membranes Heart: mildly bradycardic regular, no m/r/g Lungs: equal air entry b/l, no rales/wheezes/rhonchi Abd: firm, U-3, +BS, mild tenderness to palpation Ext: warm, no swelling or erythema, Antonio's neg, no clubbing/cyanosis Neuro: speech intact, no facial droop, moves all extremities spontaneously Results & Data Vital Signs (Past 12 Hours) Vital Signs Temp Pulse Resp BP Pulse Ox O2 Del Method 12/23/23 23:44 36.6 C 56 L 18 107/71 98 Room Air 12/23/23 19:25 36.7 C 60 18 110/64 96 Room Air Resident Activity Tracking Resident Involvement: Resident Care Provided Care Provided: OB Delivery
[2023-12-24 08:03] VITALS: RESP 16
[2023-12-24 08:34] VITALS: BP 110/69; PULSE 56
[2023-12-24] MEDS ORDERED: bisacodyL 5 MG TABEC PO SCH (20:00)
[2023-12-25] MEDS ORDERED: bisacodyL 10 MG SUPP PR PRN (03:57)
== END 2023-12-24 10:55 | disposition home or self-care (01) | DRG 807 ==
LOC: OPB 00:19 → 4S1 00:24 → 4E2 06:47